=== PATIENT | male | born 1980 | race Hispanic/Latino ===

== ENCOUNTER 2017-02-22 01:18 | Inpatient (IN) | payer BC, OTHER ==
[2017-02-22 01:46] VITALS: BMI 23.6
--- NOTE | 2017-02-22 02:03 | ED PDOC ---
Arrival/HPI - General Chief Complaint: Abnormal Skin Integrity Time Seen by Provider: 02/22/17 01:46 Historian: Patient - History of Present Illness Narrative History of Present Illness (Text): 02/22/17 02:16 A 36 year old male, who denies any past medical history, presents to the emergency department complaining of subjective fever and chills this evening. Reports to taking Tylenol about 5 hours ago. Patient reports recurrent rash on neck, arms and chin since this past october. Patient saw electroplater last week , who prescribed patient Bactrim. Patient has been taking Bactrum for eight days. Patient last saw Textile Technical Officer yesterday and spoke with her today, who advised patient to come to the emergency department because of fever and chills. Reports burning sensation in eyes, but denies any nausea, vomiting or any other complaints at this time. Textile Technical Officer: Dr. Galloway Time/Duration: > month Symptom Onset: Sudden Symptom Course: Unchanged Activities at Onset: Rest Context: Home Past Medical History - Provider Review Nursing Documentation Reviewed: Yes - Psychiatric Hx Depression: No Hx Emotional Abuse: No Hx Physical Abuse: No Hx Substance Use: No - Past Surgical History Past Surgical History: No Previous - Anesthesia Hx Anesthesia: No Hx Anesthesia Reactions: No Hx Malignant Hyperthermia: No - Suicidal Assessment Feels Threatened In Home Enviroment: No Family/Social History - Physician Review Nursing Documentation Reviewed: Yes Family/Social History: Other (nc) Smoking Status: Never Smoked Hx Alcohol Use: Yes Hx Substance Use: No Allergies/Home Meds Allergies/Adverse Reactions: Allergies No Known Allergies Allergy (Verified 02/22/17 01:45) Review of Systems - Physician Review All systems were reviewed & negative as marked: Yes - Review of Systems Constitutional: Fevers, Other (chills) Eyes: Eye Pain Gastrointestinal: absent: Nausea, Vomiting Skin: Other (superficial ulcerations b/l sides of neck, chin, one lesion on right forearm) Physical Exam Vital Signs Reviewed: Yes Vital Signs Temp Pulse Resp BP Pulse Ox 02/22/17 04:51 98.2 F 82 17 130/82 98 02/22/17 04:48 82 17 130/82 98 02/22/17 01:52 98.1 F 88 17 124/64 100 02/22/17 01:39 98.1 F Appearance: Positive for: Well-Appearing, Non-Toxic, Comfortable Pain Distress: None Mental Status: Positive for: Alert and Oriented X 3 - Systems Exam Head: Present: Atraumatic, Normocephalic Pupils: Present: PERRL Extroacular Muscles: Present: EOMI Conjunctiva: Present: Normal Mouth: Present: Moist Mucous Membranes Neck: Present: Normal Range of Motion Respiratory/Chest: Present: Clear to Auscultation, Good Air Exchange. No: Respiratory Distress, Accessory Muscle Use Cardiovascular: Present: Regular Rate and Rhythm, Normal S1, S2. No: Murmurs Abdomen: Present: Normal Bowel Sounds. No: Tenderness, Distention, Peritoneal Signs Upper Extremity: No: Cyanosis, Edema Lower Extremity: No: Edema Neurological: Present: GCS=15, CN II-XII Intact, Motor Func Grossly Intact, Normal Sensory Function Skin: Present: Warm, Dry, Other (scattered superficial ulcerations up to approximately cm diameter irregularly shaped b/l sides of neck, chin, one lesion on right forearm) Psychiatric: Present: Alert, Oriented x 3 Medical Decision Making ED Course and Treatment: 02/22/17 02:[address] Galloway, electroplater, waiting for callback. 02/22/17 03:45 Chest xray: No acute findings, as interpreted by me. - Lab Interpretations Lab Results: 02/22/17 02:11 02/22/17 02:11 Lab Results 02/22/17 02:30: Urine Color Yellow, Urine Appearance Clear, Urine pH 7.0, Ur Specific [place] 1.010, Urine Protein Negative, Urine Glucose (UA) Negative, Urine Ketones Negative, Urine Blood Negative, Urine Nitrate Negative, Urine Bilirubin Negative, Urine Urobilinogen 0.2, Ur Leukocyte Esterase Negative 02/22/17 02:11: Sodium 136, Chloride 101, Potassium 3.9, Carbon Dioxide 24, Anion Gap 15, BUN 14, Creatinine 1.3, Est GFR ( Amer) > 60, Est GFR (Non- Af Amer) > 60, Random Glucose 111 H, Calcium 9.3, Total Bilirubin 0.6, AST 42, ALT 44, Alkaline Phosphatase 78, Total Protein 6.9, Albumin 4.2, Globulin 2.7, Albumin/Globulin Ratio 1.6 02/22/17 02:11: pO2 76 H, VBG pH 7.40, VBG pCO2 41.0, VBG HCO3 25.4, VBG Total CO2 26.7, VBG O2 Sat (Calc) 96.1 H, VBG Base Excess 0.5, VBG Potassium 3.9, Sodium 135.0, Chloride 101.0, Glucose 117 H, Lactate 2.0, FiO2 21.0, Venous Blood Potassium 3.9 02/22/17 02:11: WBC 7.7, RBC 4.72, Hgb 13.8 L, Hct 41.0 L, MCV 86.9, MCH 29.2, MCHC 33.7, RDW 13.6, Plt Count 255, MPV 7.6, Gran % 55.1, Lymph % (Auto) 28.2, [place] % (Auto) 15.0 H, Eos % (Auto) 0.9 L, Baso % (Auto) 0.8, Gran # 4.26, Lymph # 2.2, [place] # 1.2 H, Eos # 0.1, Baso # 0.06 I have reviewed the lab results: Yes - RAD Interpretation Radiology Orders: 02/22/17 01:59 CHEST PORTABLE [RAD] Stat - Medication Orders Current Medication Orders: Acetaminophen (Tylenol 325mg Tab) 650 mg PO Q4H PRN PRN Reason: Pain, Mild (1-3) Acetaminophen (Tylenol 325mg Tab) 650 mg PO Q4H PRN PRN Reason: Fever >100.4 F Discontinued Medications Ampicillin Sodium/Sulbactam (Sodium 3 gm/ Sodium Chloride) 100 mls @ 100 mls/ hr IVPB STAT STA PRN Reason: Protocol Stop: 02/22/17 04:28 Last Admin: 02/22/17 04:06 Dose: 100 mls/hr eMAR Start Stop Document 02/22/17 04:06 IT (Rec: 02/22/17 04:10 IT [id number]) Intravenous Solution Start Date 02/22/17 Start Time 04:10 End Date 02/22/17 Vancomycin HCl (Vancomycin 1gm) 1 gm in 250 mls @ 167 mls/hr IVPB STAT STA Stop: 02/22/17 05:04 - Scribe Statement The provider has reviewed the documentation as recorded by the Terri Marcano Provider Scribe Attestation: All medical record entries made by the Scribe were at my direction and personally dictated by me. I have reviewed the chart and agree that the record accurately reflects my personal performance of the history, physical exam, medical decision making, and the department course for this patient. I have also personally directed, reviewed, and agree with the discharge instructions and disposition. Disposition/Present on Arrival - Present on Arrival Any Indicators Present on Arrival: No History of DVT/PE: No History of Uncontrolled Diabetes: No Urinary Catheter: No History of Decub. Ulcer: No History Surgical Site Infection Following: None - Disposition Have Diagnosis and Disposition been Completed?: Yes Diagnosis: Wound infection Disposition: HOSPITALIZED Disposition Time: 03:46 Patient Problems: Current Active Problems Problem Status Onset Wound infection Acute Condition: STABLE
[2017-02-22 02:30] LABS: BASO # 0.06 K/mm3 (0.0-2.0); BASO % 0.8 % (0.0-3.0); EOS # 0.1 (0.0-0.7); EOS % 0.9 % (1.5-5.0); GRAN # 4.26 (1.4-6.5); GRAN % 55.1 % (50.0-68.0); LYMPH # 2.2 (1.2-3.4); LYMPH % 28.2 % (22.0-35.0); MEAN CELL VOLUME 86.9 fl (80.0-105.0); MEAN CORPUSCULAR HEMOGLOBIN 29.2 pg (25.0-35.0); MEAN CORPUSCULAR HGB CONC 33.7 g/dl (31.0-37.0); MEAN PLATELET VOLUME 7.6 fl (7.0-11.0); MONO # 1.2 (0.1-0.6); RED CELL DISTRIBUTION WIDTH 13.6 % (11.5-14.5); WHITE BLOOD COUNT 7.7 10^3/ul (4.5-11.0)
[2017-02-22 02:35] LABS: ALB/GLOB RATIO 1.6 (1.1-1.8); BILIRUBIN,TOTAL 0.6 mg/dL (0.2-1.3); CALCIUM 9.3 mg/dL (8.4-10.5); GFR AFRICAN-AMERICAN > 60; GLUCOSE,RANDOM 111 mg/dL (70-110); TOTAL PROTEIN 6.9 g/dL (5.8-8.3); VENOUS BLOOD GAS BASE EXCESS 0.5 mmol/L (0.0-2.0)
[2017-02-22 02:42] LABS: ALKALINE PHOSPHATASE 78 U/L (38-126); ALT/SGPT 44 U/L (7-56); AST/SGOT 42 U/L (17-59); BLOOD UREA NITROGEN 14 mg/dL (7-21); CARBON DIOXIDE 24 mmol/L (21-33); CHLORIDE 101 mmol/L (98-107); POTASSIUM 3.9 mmol/L (3.6-5.0); SODIUM 136 mmol/L (132-148)
[2017-02-22 02:46] LABS: URINE BILIRUBIN NEGATIVE (NEGATIVE); URINE BLOOD NEGATIVE (NEGATIVE); URINE GLUCOSE (UA) NEGATIVE (NEGATIVE); URINE KETONE NEGATIVE (NEGATIVE); URINE LEUKOCYTE ESTERASE NEGATIVE Leu/uL (NEGATIVE); URINE PROTEIN NEGATIVE mg/dL (<30 mg/dL); URINE UROBILINOGEN 0.2 E.U./dL (<1 E.U./dL)
[2017-02-22 02:49] LABS: URINE APPEARANCE CLEAR (CLEAR); URINE COLOR YELLOW (YELLOW)
[2017-02-22] MEDS ORDERED: Vancomycin 500 mg Inj IVPB STA (03:29)
[2017-02-22] MEDS ORDERED: Vancomycin 1gm in NS 250ml 1 GM/250 ML BAG IVPB STA (03:35)
--- NOTE | 2017-02-22 09:16 | RAD ---
HISTORY: fever COMPARISON: No prior. FINDINGS: LUNGS: No active pulmonary disease. PLEURA: No significant pleural effusion identified, no pneumothorax apparent. CARDIOVASCULAR: Normal. OSSEOUS STRUCTURES: No significant abnormalities. VISUALIZED UPPER ABDOMEN: Normal. OTHER FINDINGS: None. IMPRESSION: No active disease.
[2017-02-22 10:08] LABS: VENOUS BLOOD GAS BASE EXCESS 2.9 mmol/L (0.0-2.0); VENOUS BLOOD PH 7.49 (7.32-7.43)
--- NOTE | 2017-02-22 16:00 | HP ---
CHIEF COMPLAINT AND HISTORY OF PRESENT ILLNESS: This is a 36-year-old male who is coming into the hospital complaining of skin lesions on his chin and his neck. He has had evaluation by at least 2 dermatologists, one of them did do a biopsy, which was inconclusive. He has been on Bactrim with no improvement of his symptoms. The patient's father at the bedside stated that he has fevers and was advised by the center medical and lab director come into the ER for further evaluation. The patient was not found to have any fevers in the ER ever since he has been in the hospital. He denies any recent travel. He does have a dog for 6 years that has received shots. The patient does not take any [id number] medications. He has been taking Truvada. The patient denies any chest pain or shortness of breath. No nausea. No vomiting. No fever. He has had no recent travels outside of the area. He is not on hiking. No insect bites that he is aware of. He has no abdominal pain or back pain. No dysuria or frequency. No nocturia. No rashes. REVIEW OF SYSTEMS: All other review of symptoms are within normal limits except as mentioned. ALLERGIES: NO KNOWN DRUG ALLERGIES. HOME MEDICATIONS: Truvada. SOCIAL HISTORY: He denies smoking. He says he drinks socially. FAMILY HISTORY: Noncontributory. PAST MEDICAL HISTORY: No significant past medical history. PHYSICAL EXAMINATION: VITAL SIGNS: Temperature is 98.9, T-max is 98.9, pulse of 80, blood pressure is 115/70, respirations 18, height 5 feet 10 inches, weight is 165 pounds, and BMI is 23.7. GENERAL: The patient lying in bed, uncomfortable, and in no acute distress. HEENT: Atraumatic and normocephalic. Anicteric sclerae. Moist mucosa. [place] conjunctivae. No oral lesions. NECK: No JVD, anterior and posterior adenopathy, thyromegaly, or bruits. CARDIOVASCULAR: S1 and S2 regular. No murmur, rubs, or gallop. LUNGS: Clear to auscultation bilaterally. No wheezes, rales, or rhonchi. ABDOMEN: Bowel sounds are positive. Soft, nontender and nondistended. No hepatosplenomegaly. No rebound and no guarding EXTREMITIES: No cyanosis, clubbing, or edema. NEUROLOGIC: No facial asymmetry. Tongue is midline. No uvula deviation. Power is 5/5 upper extremity and lower extremity. Sensation intact in upper extremity and lower extremity. PSYCHIATRIC: He is awake, alert and oriented x3. No anxiety or depression. He has normal affect. GENITOURINARY: No CVA tenderness. VASCULAR: 2+ pulses in the carotid pulses and pedal pulses. SKIN: The patient has a lesion that is on the right side of the chin, it is erythematous with no discharge. Multiple tattoos on the patient's upper back and the shoulder area. SPINE: Shows normal curvature. EXTREMITIES: No cyanosis and clubbing, no edema. LABORATORY DATA: Labs have been reviewed. Sodium is 136, potassium is 3.9. White count 7.7, hemoglobin 13.8. Urine shows blood is negative, nitrites are negative, bilirubin is negative. Chest x-ray done shows no infiltrates. ASSESSMENT: Superficial ulceration on the chin, neck, right forearm. PLAN: The patient has a chronic skin lesion, the etiology is unknown. The patient has been taking Truvada. We will get Infectious Disease to evaluate the patient. I am not sure if the patient has a history of HIV. He will most likely need HIV testing. The patient has blood cultures and urine cultures have been ordered. We will await for those results to return. The patient is currently comfortable. We will await results of his blood work. He did not want to get blood work drawn early this morning. Redraw was rescheduled at 10 o'clock later today. Ambrose Johnson MD
--- NOTE | 2017-02-22 18:24 | CON ---
DATE: 02/22/2017 The patient seen earlier this morning in 574, bed 2. CHIEF COMPLAINT: Fever x1 day. HISTORY OF PRESENT ILLNESS: This is a 36-year-old man with no significant past medical history who states that he has had a rash now for almost 4 to 5 months. He has been seen by popcorn attendant. He has had various treatments and the rash persists and it was on Bactrim for the last 9 days now has a fever x1 day and he is complaining of sore throat. No headaches and no joint pain or abdominal pain, diarrhea or constipation or bright red blood per rectum. PAST MEDICAL HISTORY: Noncontributory. PAST SURGICAL HISTORY: Noncontributory. ALLERGIES: THE PATIENT HAS NO KNOWN ALLERGIES. MEDICATIONS: Takes medications on a regular basis. He has been on Bactrim for the last 9 days. He does use alcohol. He is homosexual and he has no recent travel. He has been to [place] in the past and [place] in the past, but no recent travel. No exposure to tuberculosis and he works as a commercial construction project manager outside. PHYSICAL EXAMINATION: VITAL SIGNS: The patient's temperature is 98, blood pressure is 120/60, respiratory rate of 18, heart rate of 88. HEENT: Reveals mild erythematous pharynx. NECK: Supple. LUNGS: Have decreased breath sounds. HEART: Normal S1, S2. ABDOMEN: Soft, nontender. NEUROLOGIC: He has a diffuse a rash on the face and arms and back. Otherwise he has two open ulcers on his face, he states it has been there for a while. LABORATORY EXAMINATION: Reveals the patient's white count is 7, hemoglobin of 13, platelets of 255. The patient has 15% monocytosis, 55% granulocytosis, 28% lymphocytosis and ABGs are noted and chemistries reveals creatinine is 1.3. Glucose is 111. Urinalysis is unremarkable. The patient had a chest x-ray, no report is available. Review of image appears unremarkable. Awaiting for final report emergency room chart is reviewed. ASSESSMENT AND PLAN: This is a 36-year-old male with history of homosexuality and alcohol abuse and who has been on Bactrim last 9 days, who has had a rash for 5 months. He has a fever x1 day now. 1. Fever; fever and new rash and sore throat must rule out Arcanobacterium haemolyticum, although this rash has been present for several months, not related to fever. We will order human immunodeficiency virus testing both antibody and human immunodeficiency virus polymerase chain reaction and we will order a sed rate and C-reactive protein. Because of elevated blood sugar we will order hemoglobin A1c. We will order throat cultures and blood cultures and facial wound cultures and we will order a human immunodeficiency virus polymerase chain reaction and adenovirus and antinuclear antibodies were vasculitis workup and Chlamydia GC workup Natalia-Faustin virus and RPR and FTA for syphilis and monospot and influenza Mycoplasma, pending all culture results and we will make further recommendations pending workup results. Baldomero Gracia MD
[2017-02-23 01:09] VITALS: RESP 20
[2017-02-23 06:34] VITALS: PULSE 67; TEMP 98.5; O2SAT 100
[2017-02-23 09:05] VITALS: BP 95/63
--- NOTE | 2017-02-23 11:58 | PN ---
DATE: 02/23/2017 SUBJECTIVE: The patient is in bed, was seen earlier this morning. He is doing well. His rash has resolved on his face. PHYSICAL EXAMINATION: VITAL SIGNS: Temperature is 98, blood pressure is 100/70, respiratory rate of 18. HEENT: Examination of HEENT is unremarkable. NECK: Supple. LUNGS: Have decreased breath sounds. HEART: Normal S1 and S2. ABDOMEN: Soft. LABORATORY DATA: Laboratory examination reveals a white count of 7.7, hemoglobin of 13, sed rate is 3. Blood gases are noted and the chemistries reveals a BUN of 14, creatinine of 1.3. C-reactive is elevated at 9.86. No creatinine is available from today. Urinalysis is unremarkable. The patient's HIV is negative. RPR is nonreactive. Influenza is negative. Microbiology reveals the blood cultures are negative. The patient is currently off of antibiotics. ASSESSMENT AND PLAN: He is a 36-year-old male who has had the chronic lesions on his face, being followed by college director, was given Bactrim and I believe the erythema and even the renal insufficiency with creatinine of 1.3 may be secondary to Bactrim and he appears to be doing well, workup as outpatient. The patient was also taking Truvada for human immunodeficiency virus prophylaxis and some of his friends are also taking Truvada he states, and from Infectious Disease point of view, may be discharged. No antibiotics. Follow up the remainder of the workup as outpatient. Baldomero Gracia MD
--- NOTE | 2017-02-24 06:37 | DS ---
HISTORY OF PRESENT ILLNESS: The patient is a 36-year-old, who was admitted because of left-sided neck cellulitis and lesions. 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 He went to see biomedical engineering professor, started Bactrim and was having some local cream placed, but 2 days ago he spiked fever, so he was advised to come to emergency room for further evaluation. The patient was evaluated by Dr. Johnson and Dr. Gracia, workup is in process. The patient is afebrile. Currently eating and tolerating. No fever, no chills, wants to go home. PHYSICAL EXAMINATION: GENERAL: On examination today, he is awake, alert, oriented, communicative. VITAL SIGNS: He is afebrile. Pulse 67, respirations 20, blood pressure 95/63. LUNGS: Bilateral fair airflow. No rhonchi or crackle. HEART: S1 and S2 audible. ABDOMEN: Soft, nontender. No rebound, no guarding. NEUROLOGIC: He is awake, alert, oriented, communicative. He has one crusted lesion on his chin and on the left side of his neck. LABORATORY EXAMINATION: C-reactive protein is 9.86, otherwise his chem-7 is within normal limits. Urinalysis is unremarkable. EMMA screen is negative. RPR is nonreactive. Mononucleosis is negative. HIV test is negative. Other workup is pending. ASSESSMENT AND PLAN: 1. Left neck cellulitis with brownish lesions. 2. Renal insufficiency. The patient has multiple tattoos on his both upper and lower arms, so discussed with Dr. Gracia, he does not feel the patient needs IV antibiotics, Bactrim has given him acute renal insufficiency, so he is being discharged home. He is advised to use Bactroban cream on the lesion and follow with biomedical engineering professor and follow with Dr. Johnson as outpatient. He is advised to make an appointment next week. Terrence Miller MD
[2017-02-26 22:02] LABS: EBV EA (D) AB IgG <9.00 U/mL (<9.00)
== END 2017-02-23 11:48 | disposition home or self-care (01) | DRG 603 ==
LOC: ED 01:18 → ERH 03:41 → 5RSO 05:18
PROVIDERS: ADMIT Internal Medicine Nephrology; ATTEND Internal Medicine Nephrology
DX: L03.221 Cellulitis of neck (principal); B95.4 Other streptococcus as the cause of diseases classified elsewhere; N28.9 Disorder of kidney and ureter, unspecified; R40.2412 Glasgow coma scale score 13-15, at arrival to emergency department; T37.0X5A Adverse effect of sulfonamides, initial encounter